=== PATIENT | female | born 1995 | race American Indian/Alaskan Native ===

== ENCOUNTER 2016-07-05 08:21 | Inpatient (IN) | payer MEDICAID ==
[2016-07-05] MEDS ORDERED: LACTATED RINGERS 1,000 ML ONE (09:31)
[2016-07-05] MEDS ORDERED: POLYCILLIN/NS 2 GM/100 ML 100 ML IV ONE ×2 (09:31→09:46)
[2016-07-05] MEDS ORDERED: SUBLIMAZE ONE (09:38)
[2016-07-05] MEDS ORDERED: SUBLIMAZE IV ONE (09:46)
[2016-07-05] MEDS ORDERED: LACTATED RINGERS 1,000 ML IV SCH (10:00)
[2016-07-05] MEDS ORDERED: ePHEDrine SULFATE ONE (10:09)
[2016-07-05 10:20] LABS: Hematocrit 35.2 % (30.3-42.9); Hemoglobin 12.3 gm/dl (10.1-14.3); Mean Corpuscular HGB Conc 35 % (30-34); Mean Corpuscular Hemoglobin 32 pg (28-32); Mean Corpuscular Volume 92 fl (79-97); Platelet Count 183 K/mm3 (140-440); Red Blood Count 3.82 M/mm3 (3.65-5.03); Red Cell Distribution Width 14.3 % (13.2-15.2)
[2016-07-05] MEDS ORDERED: NARCAN 2 MG/2 ML IV PRN (10:51)
[2016-07-05] MEDS ORDERED: ePHEDrine SULFATE IV PRN (10:51)
--- NOTE | 2016-07-05 10:51 | Anesthesia Consultation ---
Anesthesia Consult and Med Hx Date of service: 07/05/16 - Airway Anesthetic Teeth Evaluation: Good ROM Head & Neck: Adequate Mental/Hyoid Distance: Adequate Mallampati Class: Class II Intubation Access Assessment: Probably Good - Pulmonary Exam CTA: Yes - Cardiac Exam Cardiac Exam: RRR - Pre-Operative Health Status ASA Pre-Surgery Classification: ASA2 Proposed Anesthetic Plan: Epidural - Pulmonary Hx Asthma: No COPD: No Hx Pneumonia: No - Cardiovascular System Hx Hypertension: No - Central Nervous System Hx Seizures: No Hx Psychiatric Problems: No - Endocrine Hx Renal Disease: No Hx End Stage Renal Disease: No Hx Hypothyroidism: No Hx Hyperthyroidism: No - Hematic Hx Anemia: No Hx Sickle Cell Disease: No - Other Systems Hx Alcohol Use: No
[2016-07-05] MEDS ORDERED: PITOCin/NS 20 UNIT/1000ML DRIP 1,000 ML IV ONE (10:54)
[2016-07-05] MEDS ORDERED: fentaNYL-BUPIV 2 MCG/ML-0.125% 100 ML EPIDURAL SCH (11:00)
[2016-07-05] MEDS ORDERED: FLUARIX QUAD 2016-2017(36 MOS+) IM ONE (12:00)
[2016-07-05] MEDS ORDERED: PITOCin/NS 20 UNIT/1000ML DRIP 1,000 ML IV SCH (12:00)
[2016-07-05] MEDS ORDERED: MINERAL OIL ONE (13:14)
--- NOTE | 2016-07-05 13:37 | History and Physical Report ---
History of Present Illness Date of examination: 07/05/16 Date of admission: 07/05/16 09:29 Chief complaint: Contraction 7/80/-1 Past History Past Medical History: no pertinent history Past Surgical History: no surgical history Family/Genetic History: none Social history: no significant social history, single. denies: smoking, alcohol abuse - Obstetrical History : 2 Para: 0 Hx # Term Pregnancies: 2 Number of Pregnancies: 0 Spontaneous Abortions: 1 Induced : 0 Number of Living Children: 0 Medications and Allergies Allergies Allergy/AdvReac Type Severity Reaction Status Date / Time No Known Allergies Allergy Verified 07/04/16 09:09 Active Meds: Active Medications Lactated Ringer's (Lactated Ringers) 1,000 mls @ 125 mls/hr IV DIRECT JENNY Last Admin: 07/05/16 12:20 Dose: 125 mls/hr Fentanyl/Bupivacaine/Sodium Chlor (Fentanyl-Bupiv 2 Mcg/Ml-0.125%) 100 mls @ 12 mls/hr EPIDURAL TITR JENNY PRN Reason: Protocol Last Admin: 07/05/16 12:20 Dose: 12 mls/hr Oxytocin/Sodium Chloride (Pitocin/Ns 20 Unit/1000ml Drip) 1,000 mls @ 125 mls/ hr IV DIRECT JENNY Review of Systems Constitutional: weight gain Eyes: deferred Ears, nose, mouth and throat: deferred Cardiovascular: no chest pain, no orthopnea, no edema Breasts: normal Gastrointestinal: abdominal pain, no nausea, no vomiting Genitourinary: deferred Rectal Exam: deferred Integumentary: deferred - Vital Signs Vital signs: Vital Signs Pulse BP Pulse Ox 84 125/77 97 07/05/16 08:46 07/05/16 08:46 07/05/16 08:46 Temp Pulse Resp BP Pulse Ox 98.2 F 91 H 18 138/84 99 07/05/16 09:48 07/05/16 13:20 07/05/16 12:20 07/05/16 13:20 07/05/16 12:16 - Physical Exam Breasts: Positive: normal Cardiovascular: Regular rate, Normal S1, Normal S2 Lungs: Positive: Clear to auscultation Abdomen: Positive: normal appearance, soft, normal bowel sounds Genitourinary (Female): Positive: normal external genitalia, normal perenium Vulva: both: normal Vagina: Positive: normal moisture Uterus: Positive: normal size, normal contour Anus/Rectum: Positive: normal perianal skin Extremities: Positive: normal - Obstetrical FHR: auscultation normal, category 1 Uterine Contraction Monitor Mode: Palpation Cervical Dilatation: 8 Cervical Effacement Percentage: 90 Results Result Diagrams: 07/05/16 09:40 Abnormal lab results 07/05/16 Range/Units 09:40 MCHC 35 H (30-34) % All other labs normal. Assessment and Plan A/P HD#1 in active labor GBS unknown records unavailable will give one dose of amp expect vaginal delivery will obtain records from clinic prior to discharge for peds - Patient Problems (1) Active labor at term Current Visit: Yes Status: Acute
[2016-07-05] MEDS ORDERED: PERCOCET 5/325 PO PRN (13:40)
[2016-07-05] MEDS ORDERED: LANSINOH TP PRN (13:40)
[2016-07-05] MEDS ORDERED: ZOFRAN IV PRN (13:40)
[2016-07-05] MEDS ORDERED: TYLENOL PO PRN (13:40)
[2016-07-05] MEDS ORDERED: ANUCORT-HC PR PRN (13:40)
[2016-07-05] MEDS ORDERED: MILK OF MAGNESIA PO PRN (13:40)
[2016-07-05] MEDS ORDERED: PHENERGAN PR PRN (13:40)
[2016-07-05] MEDS ORDERED: DULCOLAX PR PRN (13:40)
[2016-07-05] MEDS ORDERED: PHENERGAN PO PRN (13:40)
[2016-07-05] MEDS ORDERED: BENADRYL PO PRN (13:40)
[2016-07-05] MEDS ORDERED: TUCKS PAD TP PRN (13:40)
[2016-07-05] MEDS ORDERED: DERMOPLAST TP PRN (13:40)
--- NOTE | 2016-07-05 13:48 | Procedure Note ---
OB Delivery Note - Delivery Date of Delivery: 07/05/16 Surgeon: SIMRAN WILKINSON Estimated blood loss: 200cc - Vaginal Delivery presentation: vertex Delivery position: OA Intrapartum events: none Delivery augmentation: rupture of membranes Delivery monitor: external FHT, external uterine Route of delivery: Delivery placenta: spontaneous Delivery cord: nuchal cord Episiotomy: none Delivery laceration: other (small perineal ) Delivery repair: vicryl Anesthesia: epidural Delivery comments: Patient noted to be fully dilated and arom clear at 1252. Patient commnenced to pushing and delivered a viable female baby Apgars 9 and 9 OA 1317with nares suctioned and placenta clamped and doubled and cut. Placenta delivered intact 1325 with three vessel cord weight 6 pounds 8 oz. Minimal bleeding firm. lac perineum repaired with figure of 8.
[2016-07-05] MEDS ORDERED: SODIUM CHLORIDE FLUSH SYRINGE 10 ML IV NR (14:00)
[2016-07-05] MEDS ORDERED: PRENATAL VITAMIN PO SCH (14:00)
[2016-07-05] MEDS ORDERED: MINERAL OIL PO PRN (14:28)
[2016-07-05] MEDS: MOTRIN PO SCH (16:58)
[2016-07-05] MEDS: COLACE PO SCH (21:40)
[2016-07-06] MEDS: MOTRIN PO SCH ×3 (00:19→12:14)
[2016-07-06 04:17] LABS: Hematocrit 31.4 % (30.3-42.9); Hemoglobin 11.1 gm/dl (10.1-14.3)
--- NOTE | 2016-07-06 09:58 | Progress Note ---
Assessment and Plan PPD#1 doing well O neg - rhogam ordered h 12.3-11 no indication for iron continue PNV decreased bleeding no pain f/u in 4 weeks for PP check undecided about control Subjective - Subjective Date of service: 07/06/16 Principal diagnosis: PPD#1 s/p Patient reports: appetite normal, voiding normally, pain well controlled, flatus , ambulating normally [place]: doing well, nursing well Objective - Vital Signs Latest vital signs: Vital Signs Temp Pulse Pulse Resp BP BP Pulse Ox 07/06/16 00:50 98.9 F 83 20 110/62 07/05/16 20:45 99.1 F 78 20 105/56 07/05/16 15:30 98.8 F 67 18 129/74 07/05/16 15:09 80 114/73 07/05/16 14:49 71 131/66 07/05/16 13:49 83 133/67 07/05/16 13:36 95 H 111/73 07/05/16 13:30 98.2 F 111/73 07/05/16 13:20 91 H 138/84 07/05/16 12:49 81 109/59 07/05/16 12:20 18 07/05/16 12:19 85 125/84 07/05/16 12:16 89 99 07/05/16 12:11 87 100 07/05/16 12:06 89 100 07/05/16 12:01 84 99 07/05/16 11:57 82 80 L 07/05/16 11:56 86 93 07/05/16 11:52 84 93 07/05/16 11:51 82 98 07/05/16 11:46 74 93 07/05/16 11:41 79 88 07/05/16 11:36 96 H 90 07/05/16 11:33 79 91 07/05/16 11:31 92 H 99 07/05/16 11:28 80 93 07/05/16 11:26 83 100 07/05/16 11:21 83 98 07/05/16 11:18 83 114/62 07/05/16 11:16 81 100 07/05/16 11:11 77 121/56 100 07/05/16 11:07 87 123/68 07/05/16 11:06 84 100 07/05/16 11:02 85 124/63 01/01/17 11:01 77 100 07/05/16 10:56 80 117/65 99 07/05/16 10:51 87 100 07/05/16 10:50 98 H 110/65 07/05/16 10:48 89 121/64 07/05/16 10:46 90 130/65 07/05/16 10:45 84 100 07/05/16 10:44 95 H 123/64 07/05/16 10:42 80 113/73 07/05/16 10:40 78 136/77 07/05/16 10:38 93 H 122/72 100 07/05/16 10:36 88 126/75 07/05/16 10:34 99 H 122/72 07/05/16 10:33 84 100 07/05/16 10:32 93 H 123/71 07/05/16 10:30 92 H 120/79 07/05/16 10:28 100 H 98 07/05/16 10:23 90 98 07/05/16 10:18 86 97 07/05/16 10:13 84 98 07/05/16 10:08 86 98 07/05/16 10:03 96 H 97 07/05/16 09:58 102 H 96 Intake and Output 07/05/16 07/06/16 07/06/16 22:59 06:59 14:59 Intake Total 720 480 Output Total 500 600 Balance 220 -120 Intake: Oral 720 480 Output: Urine 500 600 Void 500 600 Other: Total, Intake Amount 240 240 Total, Output Amount 400 600 # Voids Void 1 1 - Exam Breasts: Present: normal Cardiovascular: Present: Regular rate Lungs: Present: Clear to auscultation Abdomen: Present: normal appearance, soft, normal bowel sounds. Absent: distention, tenderness Vulva: both: normal Uterus: Present: normal, firm, fundal height below umbilicus (3cm below umbilicus) - Labs Labs: Abnormal lab results 07/05/16 Range/Units 09:40 MCHC 35 H (30-34) %
--- NOTE | 2016-07-06 10:01 | Discharge Summary ---
Providers - Providers Date of Admission: 07/05/16 09:29 Date of discharge: 07/06/16 Attending physician: Caroline Gonzales MD Primary care physician: AIDAN JUDD Hospitalization Reason for admission: active labor Delivery: Episiotomy: none Laceration: none Other procedures: none complications: none Discharge diagnosis: IUP at term delivered [place] baby: female Condition at discharge: Good Disposition: DISCHARGED TO HOME OR SELFCARE Plan - Provider Discharge Summary Activity: routine, no sex for 6 weeks Diet: routine Instructions: routine Additional instructions: [] Smoking cessation referral if applicable(refer to patient education folder for contact #) [] Refer to [facility] Booklet Call your doctor immediately for: * Fever > 100.5 * Heavy vaginal bleeding ( >1 pad per hour) * Severe persistent headache * Shortness of breath * Reddened, hot, painful area to leg or breast * Drainage or odor from incision. * Keep incision clean and dry at all times and follow doctor's instructions regarding bathing/showering - Follow up plan Follow up: AIDAN JUDD MD [Primary Care Provider] - 7 Days CAROLINE GONZALES MD [Staff Physician] - 7 Days
[2016-07-06 10:11] VITALS: BP 122/69
[2016-07-06] MEDS: COLACE PO SCH (12:14)
[2016-07-06] MEDS ORDERED: BOOSTRIX IM ONE (15:06)
== END 2016-07-06 15:20 | disposition home or self-care (01) | DRG 775 ==
LOC: TRG 08:21 → LD 09:29 → OB 15:20
PROVIDERS: ADMIT Obstetrics & Gynecology; ATTEND Obstetrics & Gynecology
PROC: 10E0XZZ Delivery of Products of Conception, External Approach (ICD-10-PCS; principal; 2016-07-05)
PROC: 30233S1 Transfusion of Nonautologous Globulin into Peripheral Vein, Percutaneous Approach (ICD-10-PCS; 2016-07-05)
PROC: 3E0S3CZ (ICD-10-PCS; 2016-07-05)
PROC: 00HU33Z Insertion of Infusion Device into Spinal Canal, Percutaneous Approach (ICD-10-PCS; 2016-07-05)
PROC: 0HQ9XZZ Repair Perineum Skin, External Approach (ICD-10-PCS; 2016-07-05)
PROC: 10907ZC Drainage of Amniotic Fluid, Therapeutic from Products of Conception, Via Natural or Artificial Opening (ICD-10-PCS; 2016-07-05)
DX: O69.81X0 Labor and delivery complicated by cord around neck, without compression, not applicable or unspecified (principal); O26.893 Other specified pregnancy related conditions, third trimester; Z37.0 Single live birth; Z3A.37 37 weeks gestation of pregnancy; O70.9 Perineal laceration during delivery, unspecified; Z67.41 Type O blood, Rh negative
CPT/HCPCS: 36415; 85014; 85018; 85027; 85461; 86850; 86870; 86900; 86901; 90471; 90686; A6250; G0008; J0290; J2590; J2790; J3010; J7120

== ENCOUNTER 2016-07-10 06:22 | Emergency (ER) | payer MEDICAID ==
[2016-07-10 06:39] VITALS: BP 131/89
--- NOTE | 2016-07-10 08:39 | Emergency Department Report ---
HPI - General Chief Complaint: Rectal Pain Time Seen by Provider: 07/10/16 08:23 - HPI HPI: Patient is a 21-year-old female 5 days who presents to ED complaining rectal swelling and pain 1 day. Patient states yesterday she noticed some pain in her rectal area. Patient describes pain as throbbing in nature. Patient states she had a bowel movement this morning and saw some bright red stains in her stool. Patient states her stool is soft. Patient denies fever/chills/nausea/vomiting/diarrhea or constipation. ED Past Medical Hx - Past Medical History Hx Hypertension: No Hx Congestive Heart Failure: No Hx Diabetes: No Hx Deep Vein Thrombosis: No Hx Renal Disease: No Hx Sickle Cell Disease: No Hx Seizures: No Hx Asthma: No Hx COPD: No Hx HIV: No - Social History Smoking Status: Never Smoker - Medications Home Medications: Home Medications Medication Instructions Recorded Confirmed Last Taken Type Docusate Sodium [Colace] 100 mg PO BID #30 capsule 07/10/16 Unknown Rx Hydrocortisone [Anucort-HC SUPPOS] 25 mg RC BID #20 supp.rect 07/10/16 Unknown Rx Ibuprofen [Motrin 800 MG tab] 800 mg PO Q8HR PRN #30 tablet 07/10/16 Unknown Rx ED Review of Systems ROS: Stated complaint: HEMORRHOIDS Other details as noted in HPI Constitutional: denies: chills, fever Eyes: denies: eye pain, eye discharge, vision change ENT: denies: ear pain, throat pain Respiratory: denies: cough, shortness of breath, wheezing Cardiovascular: denies: chest pain, palpitations Endocrine: no symptoms reported Gastrointestinal: hematochezia (1 episode this morning). denies: abdominal pain , nausea, vomiting, diarrhea, constipation Genitourinary: denies: urgency, dysuria, frequency, hematuria, discharge Musculoskeletal: denies: back pain, joint swelling, arthralgia Skin: denies: rash, lesions Neurological: denies: headache, weakness, paresthesias, abnormal gait Psychiatric: denies: anxiety, depression, auditory hallucinations, suicidal thoughts Hematological/Lymphatic: denies: easy bleeding, easy bruising Physical Exam - Physical Exam Vital Signs: Vital Signs 07/10/16 06:35 Temperature 98.4 F Pulse Rate 20 L Respiratory 20 Rate Blood Pressure 131/89 O2 Sat by Pulse 97 Oximetry Physical Exam: GENERAL: Alert and oriented x3, no apparent distress, Normal Gait, atraumatic. HEAD: Head is normocephalic and a-traumatic. EYES: Extra ocular muscles are intact. Pupils are equal, round, and reactive to light and accommodation. NOSE: Nose symetrical, Nontender,Nares appeared normal. NECK: Supple. Non edematous, No carotid bruits. No lymphadenopathy or thyromegaly. LUNGS: Symetrical with respiration, No wheezing, no rales or crackles, CTAB. HEART: S1, S2 present, regular rate and rhythm without murmur, no rubs, no gallops. ABDOMEN: No organomegaly was noted,Positive bowel sounds, soft, and non- distended. . Nontender to palpation on all Quadrants, NO CVA tenderness. GENITOURINARY: External genitalia without erythema, exudate or discharge. RECTAL: External hemorrhoids, non thrombosed, non bleeding, non strangulated, tenderness to palpation. EXTREMITIES/MUSCULOSKELETAL: No cyanosis, clubbing, rash, lesions or edema. Full ROM bilaterally. UE/LE Pulses 2+ bilaterally. LE and UE 5+ strength bilaterally NEUROLOGIC: No focal Deficit, Cranial nerves II through XII are grossly intact. No loss of sensation, No facial droop, SKIN: Warm and dry, No lesions, No ulceration or induration present. ED Course Vital Signs 07/10/16 06:35 Temperature 98.4 F Pulse Rate 20 L Respiratory 20 Rate Blood Pressure 131/89 O2 Sat by Pulse 97 Oximetry ED Medical Decision Making - Medical Decision Making 21-year-old 5 day female who presents with external hemorrhoids. ED course: Topical lidocaine jelly applied to hemorrhoid. Patient received 60 mg IM of Toradol. Discussed follow-up with primary care physician as soon as possible discussed taking medication as prescribed. Discussed home Anusol suppositories and Colace. Discussed if pain or swelling gets worse or rectal bleeding worsens to return to ED. Discussed water sitz baths for reduction of hemorrhoids. Patient states she understands and will comply. Critical care attestation.: If time is entered above; I have spent that time in minutes in the direct care of this critically ill patient, excluding procedure time. ED Disposition Clinical Impression: Hemorrhoid, Hemorrhoids, Disposition: DISCHARGED TO HOME OR SELFCARE Is pt being admited?: No Does the pt Need Aspirin: No Condition: Stable Instructions: Hemorrhoids (ED) Additional Instructions: Do not strain at stool Do not sit on toilet for prolonged periods Hot sitz bath in tub for 20-30 minutes twice daily Use medication as prescribed Prescriptions: Hydrocortisone [Anucort-HC SUPPOS] 25 mg RC BID #20 supp.rect Docusate Sodium [Colace] 100 mg PO BID #30 capsule Ibuprofen [Motrin 800 MG tab] 800 mg PO Q8HR PRN #30 tablet PRN Reason: Pain Referrals: NEY PETERS CNM [Primary Care Provider] - 3-5 Days SRINIVASA MUÑOZ MD [Staff Physician] - 3-5 Days ERIKA ACOSTA MD [Staff Physician] - 3-5 Days Forms: Work/School Release Form(ED) Time of Disposition: 09:03
[2016-07-10] MEDS ORDERED: TORADOL IM ONE (08:46)
[2016-07-10] MEDS ORDERED: XYLOCAINE TOPICAL 2% ONE (08:49)
[2016-07-10] MEDS ORDERED: XYLOCAINE TOPICAL 2% MM ONE (09:00)
== END 2016-07-10 09:39 | disposition home or self-care (01) ==
LOC: ED 06:22
DX: O87.2 Hemorrhoids in the puerperium (principal); K64.8 Other hemorrhoids
CPT/HCPCS: 96372; 99283; J1885

== ENCOUNTER 2017-12-04 03:48 | Emergency (ER) | payer MEDICAID ==
--- NOTE | 2017-12-04 09:15 | Emergency Department Report ---
ED General Adult HPI - General Chief complaint: Rectal Pain Stated complaint: RECTAL PAIN Time Seen by Provider: 12/04/17 09:11 Source: patient Mode of arrival: Ambulatory Limitations: No Limitations - History of Present Illness Initial comments: Patient is 22 years old female with no significant past medical history. Patient presented to the ER complaining of hemorrhoid for the last 5 days. Patient stated that she went to [facility] and she was given a hydrocortisone cream that is not helping. Patient denied any fever, abdominal pain, nausea or vomiting or diarrhea. - Related Data Previous Rx's Medication Instructions Recorded Last Taken Type Docusate Sodium [Colace] 100 mg PO BID #30 capsule 07/10/16 Unknown Rx Hydrocortisone [Anucort-HC SUPPOS] 25 mg RC BID #20 supp.rect 07/10/16 Unknown Rx Ibuprofen [Motrin 800 MG tab] 800 mg PO Q8HR PRN #30 tablet 07/10/16 Unknown Rx Allergies Allergy/AdvReac Type Severity Reaction Status Date / Time No Known Allergies Allergy Verified 07/04/16 09:09 ED Review of Systems ROS: Stated complaint: RECTAL PAIN Other details as noted in HPI Comment: All other systems reviewed and negative Respiratory: denies: cough Cardiovascular: denies: chest pain, palpitations Gastrointestinal: denies: abdominal pain, nausea, vomiting Genitourinary: denies: urgency, dysuria ED Past Medical Hx - Past Medical History Hx Hypertension: No Hx Congestive Heart Failure: No Hx Diabetes: No Hx Deep Vein Thrombosis: No Hx Renal Disease: No Hx Sickle Cell Disease: No Hx Seizures: No Hx Asthma: No Hx COPD: No Hx HIV: No - Surgical History Past Surgical History?: No - Social History Smoking Status: Never Smoker Substance Use Type: None - Medications Home Medications: Home Medications Medication Instructions Recorded Confirmed Last Taken Type Docusate Sodium [Colace] 100 mg PO BID #30 capsule 07/10/16 Unknown Rx Hydrocortisone [Anucort-HC SUPPOS] 25 mg RC BID #20 supp.rect 07/10/16 Unknown Rx Ibuprofen [Motrin 800 MG tab] 800 mg PO Q8HR PRN #30 tablet 07/10/16 Unknown Rx ED Physical Exam - General Limitations: No Limitations General appearance: alert, in no apparent distress - ENT ENT exam: Present: normal exam, normal orophraynx, mucous membranes moist - Respiratory Respiratory exam: Present: normal lung sounds bilaterally - Cardiovascular Cardiovascular Exam: Present: regular rate, normal heart sounds - GI/Abdominal GI/Abdominal exam: Present: soft. Absent: distended, tenderness, guarding - Rectal Rectal exam: Present: normal rectal tone, hemorrhoids, tenderness. Absent: decreased rectal tone, bloody stool, fecal impaction, mass - Back Exam Back exam: Present: normal inspection. Absent: CVA tenderness (R), CVA tenderness (L) - Neurological Exam Neurological exam: Present: alert, oriented X3, CN II-XII intact, normal gait - Skin Skin exam: Present: warm, intact, normal color ED Course Vital Signs 12/04/17 03:56 Temperature 98.8 F Pulse Rate 94 H Respiratory 18 Rate Blood Pressure 121/66 O2 Sat by Pulse 98 Oximetry Critical care attestation.: If time is entered above; I have spent that time in minutes in the direct care of this critically ill patient, excluding procedure time. ED Disposition Clinical Impression: External hemorrhoid Disposition: DC-01 TO HOME OR SELFCARE Is pt being admited?: No Condition: Stable Instructions: Hemorrhoids (ED) Referrals: CHACHO MARTINEZ MD [Primary Care Provider] - 3-5 Days
[2017-12-04 09:37] VITALS: BP 119/61
== END 2017-12-04 09:37 | disposition home or self-care (01) ==
LOC: ED 03:48
DX: K64.4 Residual hemorrhoidal skin tags (principal)
CPT/HCPCS: 99282

== ENCOUNTER 2018-01-18 19:41 | Outpatient (CLI) | payer MEDICAID ==
[2018-01-18 20:11] VITALS: BP 100/60
[2018-01-18] MEDS ORDERED: LACTATED RINGERS 1,000 ML IV ONE (20:57)
[2018-01-18 21:55] LABS: Bacteria,Urine 1+ /HPF (Negative); Bilirubin,Urine NEG (Negative); Blood,Urine NEG (Negative); Color,Urine Amber (Yellow); Mucus,Urine 3+ /HPF
--- NOTE | 2018-01-18 23:07 | Ultrasound Report ---
FINAL REPORT PROCEDURE: US OB LIMITED TECHNIQUE: Real-time limited sonographic examination was performed for evaluation of amniotic fluid index for each fetus with image documentation (1 or more fetuses). CPT 88486 HISTORY: Vaginal Bleeding COMPARISON: No prior studies are available for comparison. FINDINGS: A single intrauterine gestation is noted with a heart rate of 139 beats per minute. Amniotic fluid index is 17.1 Centimeters. IMPRESSION: Amniotic fluid index is 17.1 centimeters
== END 2018-01-18 22:43 | disposition home or self-care (01) ==
LOC: TRG 19:41
PROVIDERS: ATTEND Obstetrics & Gynecology
DX: O47.03 False labor before 37 completed weeks of gestation, third trimester (principal); Z3A.30 30 weeks gestation of pregnancy
CPT/HCPCS: 59025; 76815; 81001

== ENCOUNTER 2018-03-16 22:40 | Inpatient (IN) | payer MEDICAID ==
[2018-03-17] MEDS ORDERED: PITOCin/NS 20 UNIT/1000ML DRIP 20,000 MILLIUNITS/1,000 ML BAG IV ONE (00:08)
--- NOTE | 2018-03-17 00:10 | History and Physical Report ---
History of Present Illness Date of examination: 03/17/18 Date of admission: 03/16/18 23:30 Chief complaint: labor History of present illness: EDC Calculations LMP: 03/25/2018 EDC Confirmation: 03/25/2018 Gestational Age: 16 6/7 wees Past History : 2 Term Births: 1 Premature Births: 0 Living Children: 1 Para: 1 Mult. Births: 0 Prev : 0 Prev. attempt? 0 Aborta: 0 Elect. Ab: 0 Spont. Ab: 0 Ectopics: 0 # 1 Delivery date: 07/05/2016 Weeks Gestation: 37 labor: no Delivery type: Hours of labor: 10 Anesthesia type: epidural [facility] Infant Sex: Female weight: 6-8 Name: [place] Past Medical History: Negative Past Medical History Past Surgical History: Negative Past Surgical History Family History Summary: Other family member - Has No Family History of Ovarvian Cancer - Entered On: 06/2018 Other family member - Has No Family History of Colon Cancer - Entered On: 2017 Other family member - Has No Family History of Breast Cancer - Entered On: 2017 Other family member - Has Family History of Lung Cancer - Entered On: 10/14/2017 Other family member - Has Family History of Diabetes - Entered On: 10/14/2017 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 of genital herpes: no Genetic History Congenital Heart Defect: Mom: no Dad: no Kwame Disease: Mom: no Dad: no Thalassemia Mom: no Dad: no Neural Tube Defect Mom: no Dad: no Down's Syndrome Mom: no Dad: no Anthony-Sachs Mom: no Dad: no Sickle Cell Disease/Trait Mom: no Dad: no Hemophilia Mom: no Dad: no Muscular Dystrophy Mom: no Dad: no Cystic Fibrosis Mom: no Dad: no [place]al Chorea Mom: no Dad: no Mental Retardation Mom: no Dad: no Fragile X Mom: no Dad: no Other Genetic/Chromosomal Disorder Mom: no Dad: no Child w/other defect Mom: no Dad: no Enviromental Exposures Xray Exposure: no Medication, drug, or alcohol use since LMP: no Exposure to Cat Liter: no Active Medications (reviewed today): None Current Allergies (reviewed today): No known allergies Past History Past Medical History: other (see HPI) Past Surgical History: other (see HPI) 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 (see HPI) Family/Genetic History: other (see HPI) - Obstetrical History Expected Date of Delivery: 03/25/18 Actual Gestation: 38 Week(s) 6 Day(s) : 2 Para: 1 Hx # Term Pregnancies: 1 Number of Pregnancies: 0 Spontaneous Abortions: 0 Induced : 0 Number of Living Children: 1 Medications and Allergies Allergies Allergy/AdvReac Type Severity Reaction Status Date / Time No Known Allergies Allergy Verified 07/04/16 09:09 Home Medications Medication Instructions Recorded Confirmed Last Taken Type Docusate Sodium [Colace] 100 mg PO BID #30 capsule 07/10/16 Unknown Rx Hydrocortisone [Anucort-HC SUPPOS] 25 mg RC BID #20 supp.rect 07/10/16 Unknown Rx Ibuprofen [Motrin 800 MG tab] 800 mg PO Q8HR PRN #30 tablet 07/10/16 Unknown Rx HYDROcodone/APAP 5-325 [[place] 1 each PO Q6HR PRN #14 tablet 12/04/17 Unknown Rx 5/325] Hydrocortisone [Anucort-HC SUPPOS] 25 mg RC BID #20 supp.rect 12/04/17 Unknown Rx Ondansetron [Zofran Odt] 4 mg PO Q8HR PRN #14 tab.rapdis 12/04/17 Unknown Rx Nitrofurantoin Monohyd/M-Cryst 100 mg PO BID 3 Days #6 capsule 01/18/18 Unknown Rx [Macrobid 100 mg Capsule] Review of Systems All systems: negative - Physical Exam Breasts: Positive: normal Cardiovascular: Regular rate Lungs: Positive: Clear to auscultation, Normal air movement Abdomen: Positive: normal appearance, soft Genitourinary (Female): Positive: normal external genitalia, normal perenium Vulva: both: normal Vagina: Positive: normal moisture Uterus: Positive: normal size, normal contour Anus/Rectum: Positive: normal perianal skin Extremities: Positive: normal - Obstetrical FHR: auscultation normal Uterine Contraction Monitor Mode: External Cervical Dilatation: 10 Cervical Effacement Percentage: 100 station: +1 Uterine Contraction Frequency (min): 2-3 Uterine Contraction Duration: 60 Uterine Contraction Pattern: Regular Uterine Tone Measurement Phase: Contraction Uterine Contraction Intensity: Strong/Firm Results Result Diagrams: 03/16/18 23:40 All other labs normal. Assessment and Plan 22y/o @ 38+6 weeks arrived in labor completely dilated. AROM at time of delivery - clear fluid. GBS NEG. RH neg. Admission orders in EMR. - Patient Problems (1) Active labor at term Current Visit: No Status: Acute (2) 38 weeks gestation of Current Visit: Yes Status: Acute
--- NOTE | 2018-03-17 00:13 | Procedure Note ---
OB Delivery Note - Delivery Date of Delivery: 03/17/18 ( Female) Globe Tester: REN GUTIÉRREZ Estimated blood loss: 100cc - Vaginal Delivery presentation: vertex Delivery position: OA Intrapartum events: none, precipitous labor- <3hr Delivery induction: none Delivery monitor: external FHT, external uterine Route of delivery: Delivery placenta: spontaneous Delivery cord: 3 umbilical vessels Episiotomy: none Delivery laceration: none Anesthesia: none Delivery comments: female del over intact perineum, placed skin to skin on mother's abdomen. 3 vessel cord clamped and cut, cord blood collected. placenta del intact and complete. no lacerations to repair. Pit to IVF. EBL 100, apgars 9/9, wt 7#3oz. Mother and remain LDR stable. - Infant A at 1 minute: 9 at 5 minutes: 9 Gender: Female (7#3)
[2018-03-17] MEDS ORDERED: MOTRIN PO PRN (00:26)
[2018-03-17] MEDS: PITOCin/NS 20 UNIT/1000ML DRIP 20 UNITS/1,000 ML BAG IV SCH ×2 (00:43→00:52)
[2018-03-17 00:44] LABS: Hematocrit 35.1 % (30.3-42.9); Hemoglobin 12.5 gm/dl (10.1-14.3); Mean Corpuscular HGB Conc 36 % (30-34); Mean Corpuscular Hemoglobin 33 pg (28-32); Mean Corpuscular Volume 92 fl (79-97); Platelet Count 206 K/mm3 (140-440); Red Blood Count 3.84 M/mm3 (3.65-5.03); Red Cell Distribution Width 13.3 % (13.2-15.2)
[2018-03-17] MEDS ORDERED: PERCOCET 5/325 PO ONE (01:00)
[2018-03-17] MEDS ORDERED: LACTATED RINGERS 1,000 ML IV SCH (01:00)
[2018-03-17] MEDS ORDERED: DULCOLAX PR PRN (02:20)
[2018-03-17] MEDS ORDERED: BENADRYL PO PRN (02:20)
[2018-03-17] MEDS ORDERED: MILK OF MAGNESIA PO PRN (02:20)
[2018-03-17] MEDS ORDERED: ZOFRAN IV PRN (02:20)
[2018-03-17] MEDS ORDERED: TUCKS PAD TP PRN (02:20)
[2018-03-17] MEDS ORDERED: SODIUM CHLORIDE FLUSH SYRINGE 10 ML IV NR (02:20)
[2018-03-17] MEDS ORDERED: DERMOPLAST TP PRN (02:20)
[2018-03-17] MEDS ORDERED: PITOCin/NS 20 UNIT/1000ML DRIP 20 UNITS/1,000 ML BAG IV SCH (02:20)
[2018-03-17] MEDS ORDERED: PHENERGAN PO PRN (02:20)
[2018-03-17] MEDS ORDERED: TYLENOL PO PRN (02:20)
[2018-03-17] MEDS ORDERED: LANSINOH TP PRN (02:20)
[2018-03-17] MEDS: MOTRIN PO SCH ×4 (05:30→23:43)
--- NOTE | 2018-03-17 06:21 | Event Note ---
Date: 03/17/18 (pt w/o voiced c/o) Pt is 6 hours s/p vaginal delivery. FF @ umb Lochia mod Perineum intact. VSS Will continue pathway for care.
[2018-03-17] MEDS: PRENATAL VITAMIN PO SCH (10:41)
[2018-03-17 13:00] LABS: Hematocrit 37.8 % (30.3-42.9); Hemoglobin 12.8 gm/dl (10.1-14.3)
[2018-03-18] MEDS: MOTRIN PO SCH ×2 (05:32→13:40)
[2018-03-18] MEDS ORDERED: BOOSTRIX IM ONE (06:00)
--- NOTE | 2018-03-18 07:29 | Discharge Summary ---
Providers - Providers Date of Admission: 03/16/18 23:30 Date of discharge: 03/18/18 (desires d/c home) Attending physician: NEYDA HUGO 03/17/18 02:20 Consult to [employer] [CONS] Routine Reason For Exam: assistance with , SNS Primary care physician: NEYDA HUGO Hospitalization Reason for admission: Labor Condition: Good Pertinent studies: Post delivery H&H 12.8/37.8 Procedures: Hospital course: uncomplicated vaginal and course Disposition: DC-01 TO HOME OR SELFCARE - Discharge Diagnoses (1) (normal spontaneous vaginal delivery) Status: Acute (2) Rh negative, delivered, current hospitalization Status: Acute Core Measure Documentation - Palliative Care Palliative Care/ Comfort Measures: Not Applicable - Core Measures Any of the following diagnoses?: none Exam - Constitutional Vitals: Temp Pulse Resp BP Pulse Ox 98.0 F 68 18 114/75 96 03/18/18 00:00 03/18/18 00:00 03/18/18 00:00 03/18/18 00:00 03/17/18 17:12 General appearance: Present: no acute distress, well-nourished - EENT Eyes: Present: PERRL ENT: hearing intact, clear oral mucosa - Neck Neck: Present: supple, normal ROM - Respiratory Respiratory effort: normal Respiratory: bilateral: CTA - Cardiovascular Heart Sounds: Present: S1 & S2. Absent: rub, click - Extremities Extremities: pulses symmetrical, No edema Peripheral Pulses: within normal limits - Abdominal General gastrointestinal: Present: soft, non-tender, non-distended, normal bowel sounds Female genitourinary: Present: normal - Integumentary Integumentary: Present: clear, warm, dry - Musculoskeletal Musculoskeletal: gait normal, strength equal bilaterally - Psychiatric Psychiatric: appropriate mood/affect, intact judgment & insight - Neurologic Neurologic: CNII-XII intact, moves all extremities - Additional findings Additional findings: Fundus firm, lochia scant, Plan Activity: no restrictions Diet: regular Follow up with: NEYDA HUGO MD [Primary Care Provider] - 04/18/18 (Congratulations!! Please call [phone] to schedule your visit in 4 weeks. Call for any questions or concerns. )
[2018-03-18 09:53] VITALS: BP 120/70
[2018-03-18] MEDS: PRENATAL VITAMIN PO SCH (11:11)
== END 2018-03-18 14:44 | disposition home or self-care (01) | DRG 775 ==
LOC: TRG 22:40 → LD 23:30 → OB 03-17 02:18
PROVIDERS: ADMIT Obstetrics & Gynecology; ATTEND Obstetrics & Gynecology
PROC: 10E0XZZ Delivery of Products of Conception, External Approach (ICD-10-PCS; principal; 2018-03-17)
PROC: 3E0334Z Introduction of Serum, Toxoid and Vaccine into Peripheral Vein, Percutaneous Approach (ICD-10-PCS; 2018-03-17)
DX: O62.3 Precipitate labor (principal); Z3A.38 38 weeks gestation of pregnancy; Z37.0 Single live birth; Z29.13 Encounter for prophylactic Rho(D) immune globulin
CPT/HCPCS: 36415; 85014; 85018; 85027; 86592; 86850; 86900; 86901; 90471; 90715; 99211; G0463; J2590; J2790